=== PATIENT | male | born 1965 | race Caucasian/White ===

== ENCOUNTER 2018-03-12 06:46 | Emergency (ER) | payer OTHER ==
[~2018-03-12] VITALS: Ht 185.4 cm; Wt 78.0 kg
[2018-03-12] MEDS ORDERED: VALIUM5 MG PO (08:03)
[2018-03-12] MEDS ORDERED: MOBIC15 MG PO (08:03)
[2018-03-12 08:11] VITALS: BP 114/76
== END 2018-03-12 08:11 | disposition home or self-care (01) ==
LOC: ER 06:46
DX: S16.1XXA Strain of muscle, fascia and tendon at neck level, initial encounter (principal); S39.012A Strain of muscle, fascia and tendon of lower back, initial encounter; V43.12XA Car passenger injured in collision with other type car in nontraffic accident, initial encounter; Y93.89 Activity, other specified; Y92.89 Other specified places as the place of occurrence of the external cause; Y99.8 Other external cause status